=== PATIENT | male | born 1960 | race Caucasian/White ===

== ENCOUNTER 2021-01-26 09:10 | Day surgery (SDC) | payer OTHER ==
[~2021-01-26] VITALS: Ht 193 cm; Wt 113.6 kg
--- NOTE | 2021-01-26 09:30 | NUR ---
both nares swabbed for covid-19 without complication. sample taken to lab.
--- NOTE | 2021-01-26 13:35 | NUR ---
01/26/21 1335 Luciana Barriga 1314 - RECIEVED PT FROM OR. HE IS AWAKE AND ALERT.
[2021-01-26] MEDS ORDERED: CEFPROZIL500 MG PO (14:23)
--- NOTE | 2021-01-26 14:24 | NUR ---
1351: PT RETURNS TO UNIT VIA STRETCHER FROM PACU. AWAKE AND ALERT ON ARRIVAL. VSS, RESP EVEN AND UNLABORED. DRESSING C/D/I. PT DENIES PAIN AND NAUSEA AT THIS TIME. ICE WATER AND CRACKERS PROVIDED. POC DISCUSSED AND PT AGREEABLE. ATTENTIVE AT THE BEDSIDE. NO NEEDS VOICED, CALL LIGHT WITHIN REACH
--- NOTE | 2021-01-26 14:34 | NUR ---
1430: PT REMAINS AWAKE AND ALERT. SCHED RX ADMINISTERED ORDERED. PT ZULMA PO INTAKE WELL. NO NEEDS OR REQUESTS, CALL LIGHT WITHIN REACH
--- NOTE | 2021-01-26 14:51 | NUR ---
1451: PT CALLS FOR THIS RN. REPORTS URGE TO URINATE. SCDS REMOVED. PT DANGLES AT THE BEDSIDE. ZULMA WELL, URINAL PROVIDED
--- NOTE | 2021-01-26 14:56 | NUR ---
1456: SUCCESSFUL POST OP VOID, 700MLS. PHYSICAL THERAPIST ARRIVES AT THE BEDSIDE TO WORK WITH PT. VSS, RESP EVEN AND UNLABORED. PT WITHOUT PAIN OR NAUSEA. DRESSING REMAINS C/D/I. NO NEEDS VOICED
--- NOTE | 2021-01-26 16:09 | NUR ---
1515: PT RETURNS FROM PHYSICAL THERAPY SESSION. CLEARED FOR DC BY THERAPIST. DC ORDER RECEIVED FROM MD ARA. PT PREPARES FOR DC WITH 'S ASSISTANCE. 1530: FINAL DOSE OF ANCEF ADMINISTERED ORDRED. SL REMOVED WITH CATH TIP IN PLACE AND PRESSURE APPLIED TO SITE, WNL. DC INSTRUCTIONS PROVIDED AND DISCUSSED ORDERED. PT VOICES UNDERSTANDING AND DENIES QUESTIONS AND CONCERNS AT THIS TIME 1545: WHEELED OFF OF UNIT IN WC BY THIS RN. TRANSFERS INTO VEHICLE INDEPEDENTLY AND APPROPRIATELY. NO PHYSICAL S/S OF DISTRESS AT THIS TIME
--- NOTE | 2021-01-28 08:59 | OR ---
[facility] [address] [place], [place] [address] Signed DATE OF OPERATION: SURGEON: Sarah Canales MD PREOPERATIVE DIAGNOSIS: Patella fracture with failure of patellar fixation, left total knee. POSTOPERATIVE DIAGNOSIS: Patella fracture with failure of patellar fixation, left total knee. PROCEDURE PERFORMED: Revision of patellar arthroplasty. LOAN SPECIALIST: Yesenia Dumas PA-C. Yesenia was present and critical for all portions of procedure. ANESTHESIA: Spinal. BLOOD LOSS: 125 mL. TOURNIQUET TIME: Zero. IMPLANTS: 38 asymmetric patella. BRIEF HISTORY: Arnaldo is a 60-year-old gentleman, who presented for routine surveillance of his knee, which showed the patellar component to be shifted medially with a fracture of the medial articular surface. The risks and benefits of revision of this component were discussed with him and given that he had increasing anterior knee pain. DESCRIPTION OF PROCEDURE: Once consent was obtained, he was taken to the operating room. After adequate anesthesia, he was placed on the operating table and a hip bump was placed. The leg was prepped and draped in a standard sterile fashion. The prior incision was incised longitudinally, carried through skin and subcutaneous tissue and flaps were developed. Mid vastus approach was undertaken and extensive thickening of the capsule and scar was Electronically Signed By: SARAH CANALES MD 01/28/21 0859 PATIENT NAME: ARNALDO HUYNH OPERATIVE REPORT DATE OF : 60 REPORT #: [id number] PHYSICIAN: SARAH CANALES MD PCP: KENNETH WANG MD REPORT IS CONFIDENTIAL AND NOT TO BE RELEASED WITHOUT AUTHORIZATION [facility] [address] [place], [place] [address] Signed noted. The partial synovectomy was performed to allow visualization of the patellar component and suprapatellar pouch. The patellar component itself was grossly loose, was pulled out and passed off. The remaining cement was removed and the two remaining pegs that had sheared off were removed. The patellar surface was then cleaned up and 1 mm of bone was removed with the saw. Once we had leveled this out, any remaining cement was removed. We re-sized again it to 38, which was what he previously had. We re-drilled the holes with a slightly larger drill, and again cleaned all scar tissue out. Once we had accomplished this, the cement was mixed. When it reached proper consistency, it was placed on the implant and the patellar surface. The implant was then seated stable. This was then clamped into position. Any excess cement was removed. The cement was allowed to harden for 14 minutes and the clamp was removed. Any remaining excess was removed. The knee was pulse lavaged at intervals throughout the procedure, total of 3 L of normal saline with Irrisept soak in the middle. The On-Q pain pump was percutaneously placed into the adductor canal from the suprapatellar pouch. All bleeders were finally were cauterized as we went through the procedure. The arthrotomy was then closed using #2 StrataFix, #0 StrataFix for the subcutaneous tissue, and rustam for the skin. Wound was dressed from Acticoat 7 dressing, ABD, and Neno wrap. He tolerated the procedure well. All sponge, needle, and instrument counts were correct. Sarah Canales MD BA/MODL /[id number] Copies: ~ Electronically Signed By: SARAH CANALES MD 01/28/21 0859 PATIENT NAME: ARNALDO HUYNH OPERATIVE REPORT DATE OF : 60 REPORT #: [id number] PHYSICIAN: SARAH CANALES MD PCP: KENNETH WANG MD REPORT IS CONFIDENTIAL AND NOT TO BE RELEASED WITHOUT AUTHORIZATION
== END 2021-01-26 15:45 | disposition home or self-care (01) ==
LOC: DS 09:10
PROVIDERS: ATTEND Specialist
PROC: 0QRF0JZ Replacement of Left Patella with Synthetic Substitute, Open Approach (ICD-10-PCS; principal; 2021-01-26 11:35)
DX: M96.69 Fracture of other bone following insertion of orthopedic implant, joint prosthesis, or bone plate (principal); T84.033A Mechanical loosening of internal left knee prosthetic joint, initial encounter; G89.18 Other acute postprocedural pain; F17.290 Nicotine dependence, other tobacco product, uncomplicated; Y79.2 Prosthetic and other implants, materials and accessory orthopedic devices associated with adverse incidents; Z79.82 Long term (current) use of aspirin; Z20.822 Contact with and (suspected) exposure to COVID-19; Z86.16 Personal history of COVID-19
CPT/HCPCS: 01392; 64447; 76942; 97110; 97161; C1713; C1776; C9803; J0690; J1100; J1885; J2001; J2250; J2704; J2795; J7040; J7121; U0003

== ENCOUNTER 2023-01-21 06:10 | Day surgery (SDC) | payer OTHER ==
[~2023-01-21] VITALS: Ht 193 cm; Wt 118.1 kg
[~2023-01-21 06:10] MED LIST: CALCIUM MAG D PO; CEFPROZIL500 MG PO; SERTRALINE HCL100 MG PO; VITAMIN C500 M6
[2023-01-21 06:29] VITALS: BP 131/81
[2023-01-21 09:09] VITALS: BP 127/92
--- NOTE | 2023-01-21 14:58 | OR ---
[facility] [address] [place], [place] [address] Signed DATE OF OPERATION: 01/21/2023 SURGEON: Tracey Lou MD PREOPERATIVE DIAGNOSES: 1. Clinical gastroesophageal reflux symptoms. 2. Colon screening. POSTOPERATIVE DIAGNOSES: 1. Poor flap valve; mild chronic esophagitis, no evidence of Noonan's epithelium. CLOtest negative. 2. Diverticulosis of sigmoid and left colon. 3. Hyperplastic polyps, rectosigmoid. PROCEDURES: 1. Esophagogastroduodenoscopy with biopsy. 2. Total colonoscopy to cecum with cold morcellation polypectomy x2+. ANESTHESIA: Intravenous sedation fentanyl 200 mcg and Versed 10 mg. INDICATION: This 62-year-old white man is patient of Dr. Nj and known to me from the past. He last underwent colonoscopy in 2009 where he was noted to have diverticulosis. He has no current symptoms of bleeding, diarrhea or constipation and no family history of colon cancer. Additionally, he has gastroesophageal reflux symptoms from [id number]. Last summer, he was treated with PPI medication with good clinical response, but no longer takes that and continues to have "heartburn" symptoms. He has never had upper endoscopy. He does not have dysphagia or hematemesis. He has no family history of esophageal cancer that he is aware of. He is admitted at this time to undergo colonoscopy and upper endoscopy. He understands the risk of bleeding, infection, perforation. FINDINGS: Upper endoscopy did show a poor flap valve and mild chronic distal esophagitis, but no evidence of Noonan's epithelium. CLOtest was negative 15 minutes postprocedure. On colonoscopy, he had a good prep. Complete colonoscopy was undertaken with visualization of the cecum. There were diverticula of the sigmoid and left colon. He did have hyperplastic polyps of the rectosigmoid which were excised. There were no Electronically Signed By: TRACEY LOU MD 01/21/23 1458 PATIENT NAME: BAR HUYNH OPERATIVE REPORT DATE OF : 60 REPORT #: [id number] PHYSICIAN: TRACEY LOU MD PCP: DOYLE NJ MD REPORT IS CONFIDENTIAL AND NOT TO BE RELEASED WITHOUT AUTHORIZATION [facility] [address] [place], [place] [address] Signed other findings of concern. PROCEDURE IN DETAIL: The patient was brought to the endoscopy suite and placed in lateral decubitus position after undergoing lidocaine hypopharyngeal anesthesia. A bite block was placed. An Olympus video upper endoscope was passed in the hypopharynx. The vocal cords appeared normal. The scope was advanced to the esophagus throughout its length, it appeared normal except in the distal portion there was mild chronic inflammation. There was no evidence of Noonan's epithelium. Scope was advanced to the stomach which was insufflated with air. Rugal folds were normal. Pylorus was normal. Scope was passed through it into the duodenum. Duodenum was normal. Biopsies were obtained to assess for celiac disease. The scope was withdrawn and biopsies then taken of the antrum for both LIZBET and pathologic testing. Retroflexed view showed a poor flap valve but no large hiatal hernia proper. The scope was straightened and withdrawn to the distal esophagus. There were mild chronic inflammatory changes noted. Biopsies were obtained nevertheless. There was no evidence of Noonan's epithelium. Scope was further withdrawn. The midesophagus similarly biopsied. The scope was then removed. Plans were then made for colonoscopy. Additional sedation was given. Digital rectal examination performed which was normal. An Olympus video colonoscope was passed in the rectum and manipulated throughout the colon ultimately intubating the right colon and advanced to the cecum itself. The ileocecal valve and appendiceal orifice appeared normal. The scope was carefully withdrawn. Examination throughout showed no sign of polyps, only diverticula of the left colon and sigmoid. At the rectosigmoid were some hyperplastic polyps, though clearly benign, they were excised. The scope was then withdrawn. Retroflexed view of the rectum showed no sign of abnormalities. Scope was removed. The patient was taken to the recovery room in good condition. CONCLUDING DIAGNOSES: 1. Poor flap valve and clinical gastroesophageal reflux symptoms. 2. Diverticulosis of colon, hyperplastic polyps of the sigmoid. PLAN: We would recommend Prilosec 20 mg p.o. daily for symptomatic relief of reflux symptoms. Would recommend repeat colonoscopy in 10 years, sooner if symptoms should occur. A high-fiber diet is recommended as well. He will return to the ongoing care of Dr. Nj. Electronically Signed By: TRACEY LOU MD 01/21/23 1458 PATIENT NAME: BAR HUYNH OPERATIVE REPORT DATE OF : 60 REPORT #: [id number] PHYSICIAN: TRACEY LOU MD PCP: DOYLE NJ MD REPORT IS CONFIDENTIAL AND NOT TO BE RELEASED WITHOUT AUTHORIZATION [address] [address] Signed Tracey Lou MD JM/MODL /[id number] cc: Dr. Nj Copies: ~ Electronically Signed By: TRACEY LOU MD 01/21/23 1458 PATIENT NAME: BAR HUYNH TRAVIS OPERATIVE REPORT DATE OF : 60 REPORT #: [id number] PHYSICIAN: TRACEY LOU MD PCP: DOYLE NJ MD REPORT IS CONFIDENTIAL AND NOT TO BE RELEASED WITHOUT AUTHORIZATION
--- NOTE | 2023-01-31 21:23 | PATH ---
[facility] [place] [facility] [address] [place], [place] [address] Signed SPECIMEN(S): A DUODENAL BIOPSY SPECIMEN(S): B ANTRUM/PYLORUS BIOPSY SPECIMEN(S): C LOWER ESOPHAGEAL BIOPSY SPECIMEN(S): D MIDDLE ESOPHAGEAL BIOPSY SPECIMEN(S): E SIGMOID POLYP SPECIMEN SOURCE: A. DUODENAL BIOPSY B. ANTRUM/PYLORUS BIOPSY C. LOWER ESOPHAGEAL BIOPSY D. MIDDLE ESOPHAGEAL BIOPSY E. SIGMOID POLYP CLINICAL HISTORY: EGD. GERD, surveillance colonoscopy/2009 diverticulosis and polyps duodenum biopsy FINAL PATHOLOGIC DIAGNOSIS: A. Duodenum, biopsy: - No significant histopathology. B. Stomach, antrum/pylorus, biopsy: - No significant histopathologic alterations. C. Lower esophagus, biopsy: - Portions of unremarkable squamous mucosa. D. Middle esophagus, biopsy: - Portions of unremarkable squamous mucosa. E. Colon, sigmoid, polyp, biopsy: - Benign colonic mucosa with prominent intramucosal lymphoid aggregates. - Hyperplastic polyps, 2 fragments. - No evidence of neoplasia. COMMENT: The sections from the duodenal biopsy show portions of duodenal mucosa with long fingerlike villi. There is no villous atrophy, crypt hyperplasia or intraepithelial lymphocytosis making a diagnosis of celiac disease unlikely. There is no evidence of peptic duodenitis, microorganisms, abnormal infiltrates or neoplasia. The sections through the gastric biopsies show fragments of histologically unremarkable antral mucosa. There is no evidence of acute or chronic inflammation. There is no evidence of H. pylori, intestinal metaplasia, abnormal infiltrates or neoplasia. PATIENT NAME: BAR HUYNH PATHOLOGY DATE OF : 60 REPORT #: [id number] PHYSICIAN: BLANCA HERBERT PCP: DOYLE BRUNO MD REPORT IS CONFIDENTIAL AND NOT TO BE RELEASED WITHOUT AUTHORIZATION [facility] [place] [facility] [address] [place], [place] [address] Signed The biopsy shows normal appearing squamous epithelium. There is no evidence of acute or chronic inflammation. No glandular mucosa is present. Examination of sections from three different levels of the tissue block discloses the presence of benign intramucosal lymphoid aggregates and hyperplastic polyps. Intramucosal lymphoid aggregates can sometimes appear as polyps endoscopically. They have no clinical significance. There is no evidence of dysplasia or malignancy. K MICROSCOPIC EXAMINATION: Histologic sections of all submitted blocks are examined by light microscopy. These findings, together with the gross examination, support the pathologic diagnosis. GROSS DESCRIPTION: A. The specimen, labeled and designated "Speculator, duodenal biopsy," is received in formalin and consists of one simon soft tissue fragment, 0.2 cm. Entirely submitted in (A1). B. The specimen, labeled and designated "Speculator, antrum biopsy," is received in formalin and consists of three simon soft tissue fragments, ranging from 0.1-0.4 cm. Entirely submitted in (B1). C. The specimen, labeled and designated "Milton, lower esophagus biopsy," is received in formalin and consists of four simon soft tissue fragments, ranging from 0.2-0.5 cm. Entirely submitted in (C1). D. The specimen, labeled and designated "Milton, middle esophagus biopsy," is received in formalin and consists of one simon soft tissue fragment, 0.4 cm. Entirely submitted in (D1). E. The specimen, labeled and designated "Milton, sigmoid colon polyp," is received in formalin and consists of four simon soft tissue fragments, ranging from 0.1-0.7 cm. Entirely submitted in (E1). JS (under the direct supervision of a pathologist) The Gross Description was prepared using a voice recognition system. The report was reviewed for accuracy; however, sound-alike word errors, addition and/or deletions may occur. If there is any question about this report, please contact Client Services. ADDITIONAL NOTES: Immunohistochemical and/or in situ hybridization studies if performed in this case included appropriate positive controls that reacted as expected. This PATIENT NAME: BAR HUYNH PATHOLOGY DATE OF : 60 REPORT #: [id number] PHYSICIAN: BLANCA HERBERT PCP: DOYLE BRUNO MD REPORT IS CONFIDENTIAL AND NOT TO BE RELEASED WITHOUT AUTHORIZATION [address] [address] Signed test was developed and its performance characteristics determined by [facility]. It has not been cleared or approved by the U.S. Food and Drug Administration. The FDA has determined that such clearance or approval is not necessary. This test is used for clinical purposes. It should not be regarded as investigational or for research. [facility] is certified under the Clinical Laboratory Improvement Amendments of 1988 (CLIA) as qualified to perform high complexity clinical laboratory testing. PERFORMING LABORATORY: Technical component was performed by [facility], [address] [place] [id number] (CLIA# [id number]). Professional interpretation was performed by [facility], [address] [place] [address] (CLIA#:[id number]). Diagnostician: Prince Remy MD Pathologist Electronically Signed 01/31/2023 Copies: ~ PATIENT NAME: BAR HUYNH PATHOLOGY DATE OF : 60 REPORT #: [id number] PHYSICIAN: BLANCA HERBERT PCP: DOYLE BRUNO MD REPORT IS CONFIDENTIAL AND NOT TO BE RELEASED WITHOUT AUTHORIZATION
== END 2023-01-21 09:15 | disposition home or self-care (01) ==
LOC: OPS 06:10 → DS 06:10 → OPS 07:30
PROVIDERS: ATTEND Surgery
PROC: 0DBN8ZZ Excision of Sigmoid Colon, Via Natural or Artificial Opening Endoscopic (ICD-10-PCS; 2023-01-21)
PROC: 0DB58ZX Excision of Esophagus, Via Natural or Artificial Opening Endoscopic, Diagnostic (ICD-10-PCS; principal; 2023-01-21 07:30)
PROC: 0DB78ZX Excision of Stomach, Pylorus, Via Natural or Artificial Opening Endoscopic, Diagnostic (ICD-10-PCS; 2023-01-21 07:30)
DX: Z12.11 Encounter for screening for malignant neoplasm of colon (principal); K63.5 Polyp of colon; K57.30 Diverticulosis of large intestine without perforation or abscess without bleeding; K21.00 Gastro-esophageal reflux disease with esophagitis, without bleeding; I10 Essential (primary) hypertension; Z72.89 Other problems related to lifestyle; Z96.652 Presence of left artificial knee joint
CPT/HCPCS: 99153; G0500; J0690; J2250; J3010; J7121